=== PATIENT | female | born 2000 | race Hispanic/Latino ===

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

== ENCOUNTER 2021-09-24 20:22 | Emergency (ER) | payer BC ==
[2021-09-24] MEDS ORDERED: Ondansetron PF 4 MG/2 ML Vial ONE (20:39)
[2021-09-24] MEDS ORDERED: Morphine 4 MG/ML VIAL ONE (20:39)
== END 2021-09-24 22:16 | disposition home or self-care (01) ==
LOC: NAV ERS 20:22
DX: S82.52XA Displaced fracture of medial malleolus of left tibia, initial encounter for closed fracture (principal); X50.1XXA Overexertion from prolonged static or awkward postures, initial encounter; Y93.44 Activity, trampolining
CPT/HCPCS: 29515; 96374; 96375; J2270; J2405

== ENCOUNTER 2022-08-14 11:24 | Emergency (ER) | payer BC, OTHER ==
[2022-08-14 11:55] LABS: Bilirubin Negative (Negative); Blood, Urine Trace (Negative); Clarity Clear (Clear); Glucose, Urine (Dipstick) Negative (Negative); Ketone, Urine Negative (Negative); Leukocyte Large (Negative); Nitrite Negative (Negative); Protein, Urine (Dipstick) Negative (Neg-Trace); Specific Gravity, Urine 1.025 (1.005-1.030); Urobilinogen 0.2 mg/dL (Less than 2)
[2022-08-14 12:01] LABS: Bacteria/HPF 1+ HPF (None Seen); RBC/HPF 0-3 HPF (0-3)
[2022-08-14 12:04] LABS: Pregnancy Test - Urine (BHCG) Negative (Negative); Pregu Control Background? CLEAR/WHITE (CLR/WHITE); Pregu Control Bar Appear? YES (CONTROL BAR); Specific Gravity 1.025 (1.002-1.036)
== END 2022-08-14 13:18 | disposition home or self-care (01) ==
LOC: NAV ERS 11:24
DX: N30.00 Acute cystitis without hematuria (principal)
CPT/HCPCS: 81003; 81015; 81025; 99284

== ENCOUNTER 2023-03-27 19:18 | Emergency (ER) | payer OTHER ==
[2023-03-27 19:48] LABS: Bilirubin Negative (Negative); Blood, Urine Negative (Negative); Clarity Clear (Clear); Glucose, Urine (Dipstick) Negative (Negative); Ketone, Urine Negative (Negative); Leukocyte Negative (Negative); Nitrite Negative (Negative); Protein, Urine (Dipstick) Negative (Neg-Trace); pH, Urine 5.5 (5.0-9.0)
[2023-03-27 19:50] LABS: CAUTI Indications for Culture Pregnancy; Specific Gravity, Urine 1.028 (1.002-1.036)
[2023-03-27 19:53] LABS: Bacteria/HPF 3+ HPF (None Seen); RBC/HPF 0-3 HPF (0-3); Squamous Epithelial 21-50 HPF (0-3)
[2023-03-27 19:55] LABS: Urine Culture Reflex Yes Yes
== END 2023-03-27 20:47 | disposition short-term general hospital (02) ==
LOC: NAV ERS 19:18
DX: O99.891 Other specified diseases and conditions complicating pregnancy (principal); R10.2 Pelvic and perineal pain; Z3A.22 22 weeks gestation of pregnancy
CPT/HCPCS: 36415; 81001; 84702; 87086; 99284